=== PATIENT | female | born 2000 | race Two or more races ===

== ENCOUNTER 2024-10-31 21:26 | Emergency (ER) | payer MEDICAID, OTHER ==
[~2024-10-31] VITALS: Ht 154.9 cm; Wt 62.6 kg
[2024-10-31 21:48] LABS: Urine Bacteria None Seen /hpf (None Seen)
[2024-10-31 22:03] LABS: Urine Blood 2+ /uL (Negative); Urine Clarity Turbid (Clear); Urine Color Light-Yellow (Yellow); Urine Mucus FEW (None Seen); Urine Protein, UAD Negative (Negative); Urine Specific Gravity 1.026 (1.001-1.035); Urine Squamous Epithelial Cell FEW /hpf (<5); Urine Urobilinogen Normal (Negative); Urine WBC 9 /hpf (0 - 5)
--- NOTE | 2024-10-31 22:38 | DVH ---
OBSTETRIC ULTRASOUND PRIOR TO 14 WEEKS CLINICAL INDICATION: abd pain TECHNIQUE: Multiple grayscale ultrasound images were obtained of the pelvis [facility]. Limited color Doppler and spectral Doppler acquisitions were also obtain ed. COMPARISON: None FINDINGS: Uterus: 9.8 x 10.2 x 6.7 cm. There is a single intrauterine gestational sac is visualized. A po le is visualized measuring 6.52 cm compatible with an estimated gestational age of 12 weeks, 6 days. cardiac activity is present with heart rate of 158 beats per minute. Early placenta is fundal and posterior. Right adnexa: right ovary 2.8 x 2.1 x 1.7 cm. Normal arterial blood flow in the ovary. No right adnex al mass seen. Left adnexa: left ovary 2.8 x 3.1 x 2.3 cm. Normal arterial blood flow in the ovary. No left adnexal mass seen. Small cyst in the left ovary measures 1.2 cm with peripheral vascularity likely a corpus l uteum cyst. Other: None IMPRESSION: Single living intrauterine with an estimated gestational age of 12 weeks, 4 days, correspo nding to an estimated date of delivery of 05/11/2025.
--- NOTE | 2024-10-31 22:55 | ED.PDOC ---
FACILITIES MAINTENANCE ENGINEER HPI Comments 23-year-old female complaining of abdominal cramping. States she was felt no tightening in his stomach which she normally feels. Patient reports being 14 weeks . States she was . No bleeding yesterday or today. No fevers no chills. States she has not seen OBGYN yet. Chief Complaint: Time Seen by MD: 21:31 Reviewed Notes: Nurses Notes Allergies: Coded Allergies: NO KNOWN ALLERGIES (Unverified , 10/31/24) Information Source: Patient Past Medical History PAST MEDICAL HISTORY: Denies Surgical History: Denies all surgeries GROUNDSKEEPING YARDMAN History: No Pertinent GROUNDSKEEPING YARDMAN History Constitutional: denies: chills, diaphoresis, fatigue, fever, malaise, sweats, weakness, others EENTM: denies: blurred vision, double vision, ear bleeding, ear discharge, ear drainage, ear pain, ear ringing, eye pain, eye redness, hearing loss, mouth pain, mouth swelling, nasal discharge, nose bleeding, nose congestion, nose pain, photophobia, tearing, throat pain, throat swelling, voice changes, others Respiratory: denies: cough, hemoptysis, orthopnea, SOB at rest, shortness of breath, SOB with excertion, stridor, wheezing, others Cardiovascular: denies: chest pain, dizzy spells, diaphoresis, Dyspnea on exertion, edema, irregular heart beat, left arm pain, lightheadedness, palpitations, PND, syncope, others Gastrointestinal: denies: abdomen distended, abdominal pain, blood streaked bowels, constipated, diarrhea, dysphagia, difficulty swallowing, hematemesis, melena, nausea, poor appetite, poor fluid intake, rectal bleeding, rectal pain, vomiting, others Genitourinary: denies: abnormal vagina bleeding, burning, dyspareunia, dysuria, flank pain, frequency, hematuria, incontinence, pain, , vagina discharge, urgency, others Neurological: denies: dizziness, fainting, headache, left sided numbness, left sided weakness, numbness, paresthesia, pre-existing deficit, right sided numbness, right sided weakness, seizure, speech problems, tingling, tremors, weakness, others Musculoskeletal: denies: back pain, gout, joint pain, joint swelling, muscle pain, muscle stiffness, neck pain, others Integumetry: denies: bruises, change in color, change in hair/nails, dryness, laceration, lesions, lumps, rash, wounds, others Physical Exam General Appearance: No Apparent Distress, Normal HEENT: Normal ENT Inspection, Pharynx Normal, TMs Normal Neck: Full Range of Motion, Non-Tender, Normal, Normal Inspection Respiratory: Chest Non-Tender, Lungs Clear, No Accessory Muscle Use, No Respiratory Distress, Normal Breath Sounds Cardiovascular: No Edema, No JVD, No Murmur, No Gallop, Normal Peripheral Pulses, Regular Rate/Rhythm Breast Exam: Deferred Gastrointestinal: No Organomegaly, Non Tender, No Pulsatile Mass, Normal Bowel Sounds, Soft Genitalia: Deferred Pelvic: Deferred Rectal: Deferred Extremities: No calf tenderness, Normal capillary refill, Normal inspection, Normal range of motion, Non-tender, No pedal edema Musculoskeletal : Apperance: Normal Neurologic: Alert, 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 Was a procedure done?: No Differential Diagnosis (GROUNDSKEEPING YARDMAN) Vaginal Bleeding: - Complete, - Incomplete, - Inevitable, Dysmenorrhea, Ectopic , Menometrorrhagia X-Ray, Labs, Meds, VS Vital Signs Date Time Temp Pulse Resp B/P (MAP) Pulse Ox O2 Delivery O2 Flow Rate FiO2 10/31/24 21:35 98.5 77 16 101/66 (78) 98 Lab Test 10/31/24 21:54 10/31/24 21:34 Range/Units Beta HCG, Quantitative 62014.8 H 1.5-4.2 mIU/mL Urine Color Light-yellow Yellow Urine Clarity Turbid H Clear Urine pH 6.0 5.0-9.0 Urine Specific [place] 1.026 1.001-1.035 Urine Protein Negative Negative Urine Ketones 4+ H Negative Urine Blood 2+ H Negative /uL Urine Nitrite Negative Negative Urine Bilirubin Negative Negative Urine Urobilinogen Normal Negative mg/dL Urine Leukocyte Esterase 2+ Negative /uL Urine RBC 8 0 - 4 /hpf Urine WBC 9 0 - 5 /hpf Urine Squamous Epithelial Cells Few <5 /hpf Urine Bacteria None seen None Seen /hpf Urine Mucus Few None Seen Urine Glucose Normal Normal mg/dL Urine Test Positive Negative X-Ray, Labs, Meds, VS Comment Imaging: X-rays and CT scans were reviewed and interpreted by this provider, imaging shows no fractures and no pathological disease. Pending radiology review. Laboratory: Labs reviewed and interpreted by this provider. No significant abnormalities noted. Patient has prior medical visits reviewed. Med reconciliation performed Vital signs reviewed Time of 1ST Reevaluation: 22:54 Reevaluation 1ST: Improved Patient Education/Counseling: Diagnosis, Treatment, Need For Follow Up Family Education/Counseling: Diagnosis Departure 1 Departure Time of Disposition: 22:54 Impression: Primary Impression: Second trimester Disposition: 01 HOME / SELF CARE / HOMELESS Condition: Fair Discharged With: Self Critical Care Note Critical Care Time?: No Stability Stability form required: No Heart Score Heart Score: Heart Score Response (Comments) Value History N/A 0 EKG N/A 0 Age N/A 0 Risk Factors N/A 0 Troponin N/A 0 Total 0 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
[2024-10-31 23:08] VITALS: BP 106/60; PULSE 75; RESP 16; TEMP 97.7; O2SAT 97
== END 2024-10-31 23:10 | disposition home or self-care (01) ==
LOC: ER 21:26
DX: O99.612 Diseases of the digestive system complicating pregnancy, second trimester (principal); O26.891 Other specified pregnancy related conditions, first trimester; R10.2 Pelvic and perineal pain; K92.89 Other specified diseases of the digestive system; Z3A.14 14 weeks gestation of pregnancy
CPT/HCPCS: 36415; 76801; 81001; 81025; 84702